=== PATIENT | male | born 1990 ===

== ENCOUNTER 2019-11-01 18:05 | Emergency (ER) | payer SELFPAY ==
[2019-11-01 18:14] VITALS: BP 135/85; PULSE 97; RESP 18; TEMP 36.6; O2SAT 100; BMI 23.7
[2019-11-01 18:49] LABS: Basophils % 0.1 %; Hematocrit 52.6 % (42.0-52.0); Hemoglobin 18.3 g/dL (11.7-16.6); Lymphocytes % 10.6 %; Mean Corpuscular HGB Conc 34.8 g/dL (30.0-36.0); Mean Corpuscular Hemoglobin 28.6 pg (28.0-34.0); Mean Corpuscular Volume 82.3 fL (80-94); Mean Platelet Volume 11.2 fL (7.4-10.4); Monocytes # 1.2 10^3/uL (0.2-0.9); Monocytes % 6.1 %; Neutrophils # 15.6 10^3/uL (1.8-7.7); Neutrophils % 82.8 %; Nucleated Red Blood Cells % 0 %; Platelet Count 393 10^3/cmm (130-400); Red Blood Count 6.39 10^6/uL (4.1-5.3); Red Cell Distribution Width 12.4 % (12.1-15.1); White Blood Count 18.8 10^3/uL (4.0-10.0)
[2019-11-01 19:05] LABS: Alanine Aminotransferase 21 U/L (0-41); Alkaline Phosphatase 104 IU/L (40-130); Anion Gap 29.9 (5-19); Aspartate Amino Transferase 31 U/L (0-40); Blood Urea Nitrogen 47 mg/dL (6-20); Calcium 12.8 mg/dL (8.5-10.5); Carbon Dioxide 22 mmol/L (22-29); Chloride 83 mmol/L (98-107); Glucose 156 mg/dL (65-115); Lipase 18 U/L (13-60); Osmolality Calculated 273 mOsm/kg (285-295); Potassium 3.9 mmol/L (3.5-5.1); Sodium 131 mmol/L (136-145); Total Bilirubin 1.5 mg/dL (0.15-1.2); Total Protein 10.1 g/dL (6.6-8.7)
[2019-11-01 19:19] LABS: Albumin Level 7.8 g/dL (3.5-5.2); Globulin 2.3 g/dL (1.3-4.6)
--- NOTE | 2019-11-01 19:39 | W.ED.GENADLT ---
HPI - General Adult General: Chief complaint: General Medical Stated complaint: n/v bloody urine/vomit Time Seen by Provider: 11/01/19 19:22 Source: patient Mode of arrival: ambulatory Limitations: no limitations History of Present Illness: HPI narrative: Patient comes in today with complaints of nausea and vomiting and being overheated. Patient states that yesterday got really hot and started throwing up late last night. Patient reports that today he just has not felt any better has not really been able to tolerate fluids. Patient appears mildly unwell. Patient appears in no pain. Patient has no chronic medical problems reported. Associated symptoms: Reports nausea and vomiting Review of Systems General: Reports: 10 or more systems reviewed and unremarkable except in HPI and below GI: Reports: nausea and vomiting Physical Exam Const: COMMON NORMALS: no acute distress and patient oriented x3 GENERAL APPEARANCE: cooperative HENMT: COMMON NORMALS: normocephalic and Normal external nose present HEAD & SCALP: normal to inspection and normocephalic NOSE: Normal external nose present MOUTH: Normal oral and palatal mucosa present THROAT: posterior oropharynx normal Eye: GENERAL EYE: appearance normal, both eyes and all related structures Neck/C-Spine: COMMON NORMALS: full ROM Lymph: LYMPHATIC: no lymphadenopathy noted Chest: COMMONS NORMALS: normal inspection of the chest Resp: COMMON NORMALS: normal respiratory effort EFFORT & INSPECTION: Yes able to speak in complete sentences Cardio: COMMON NORMALS: regular rate and regular rhythm RATE: regular rate RHYTHM: regular rhythm GI: COMMON NORMALS: non-tender : COMMON NORMALS: Yes no CVA tenderness BLADDER/KIDNEY EXAM: Yes no CVA tenderness Back/Pelvis: COMMON NORMALS: no CVA tenderness and thoracic and lumbar spine normal to inspection Extremity: COMMON NORMALS: normal to inspection Neuro: COMMON NORMALS: patient oriented x3 and moves all extremities Psych: COMMON NORMALS: mental status grossly normal and cooperative Skin: COMMON NORMALS: no rashes or lesions noted GENERAL SKIN EXAM: no rashes or lesions noted Course ED course: 2238, patient is able to eat and drink without difficulty. Patient has no episode of nausea or vomiting. Awaiting repeat basic metabolic panel and CPK. Vital Signs: Vital signs: Vital Signs Temperature 97.9 F 11/01/19 18:14 Pulse Rate 71 11/01/19 21:24 Respiratory Rate 17 11/01/19 21:24 Blood Pressure 157/94 11/01/19 21:24 Pulse Oximetry 100 11/01/19 21:24 MDM - General Adult MDM Narrative: Medical decision making narrative: Patient comes in today for complaints of nausea and vomiting and heat exhaustion. Patient reports getting overheated yesterday and since then he has been nauseous and throwing up. Patient appears mildly unwell. Patient responds appropriate to questioning. Abdomen was soft nontender and vital signs were normal. Differential diagnosis includes but not limited to alcohol intoxication, heatstroke, heat exhaustion, acute kidney injury, dehydration. Laboratory values noted a creatinine of 4.3. Hemoglobin and hematocrit were 18.3 and 52.6. CPK was 700. Patient was hydrated with 3 L of fluids and wanted to go home. Patient was able to eat a meal and drink fluids holding them down. Reviewed exam with patient with recommendations and offered to admit patient patient did not want to be admitted at this time and wanted to go home for trial but we return if he became sick and threw up again. Reviewed recommendations of staying out of the heat and continue drinking fluids and add some electrolyte solution to to his regimen of fluids. Patient reported understanding and agreed to plan. Lab Data: Labs: Lab Results 11/01/19 11/01/19 11/01/19 Range/Units 18:37 18:37 18:37 WBC 18.8 H (4.0-10.0) 10^3/ uL RBC 6.39 H (4.1-5.3) 10^6/u L Hgb 18.3 H (11.7-16.6) g/dL Hct 52.6 H (42.0-52.0) % MCV 82.3 (80-94) fL MCH 28.6 (28.0-34.0) pg MCHC 34.8 (30.0-36.0) g/dL RDW 12.4 (12.1-15.1) % Plt Count 393 (130-400) 10^3/c mm MPV 11.2 H (7.4-10.4) fL Neut % (Auto) 82.8 % Lymph % (Auto) 10.6 % Kingfisher % (Auto) 6.1 % Eos % (Auto) 0.0 % Baso % (Auto) 0.1 % Neut # (Auto) 15.6 H (1.8-7.7) 10^3/u L Lymph # (Auto) 2.0 (0.8-4.8) 10^3/u L Kingfisher # (Auto) 1.2 H (0.2-0.9) 10^3/u L Eos # (Auto) 0.0 (0.0-0.8) 10^3/u L Baso # (Auto) 0.0 (0.0-0.1) 10^3/u L Nucleated RBC % (a uto) 0 % Nucleated RBCs # 0.0 /100WBC Sodium 131 L (136-145) mmol/L Potassium 3.9 (3.5-5.1) mmol/L Chloride 83 L (98-107) mmol/L Carbon Dioxide 22 (22-29) mmol/L Anion Gap 29.9 H (5-19) BUN 47 H (6-20) mg/dL Creatinine 4.2 H (0.7-1.2) mg/dL GFR Calculation 17.0 L (90-130) mL/min Glucose 156 H (65-115) mg/dL Calculated Osmolal ity 273 L (285-295) mOsm/k g Calcium 12.8 H (8.5-10.5) mg/dL Total Bilirubin 1.5 H (0.15-1.2) mg/dL AST 31 (0-40) U/L ALT 21 (0-41) U/L Alkaline Phosphata se 104 (40-130) IU/L Creatine Kinase 722 H* (39-308) U/L Total Protein 10.1 H (6.6-8.7) g/dL Albumin 7.8 H (3.5-5.2) g/dL Globulin 2.3 (1.3-4.6) g/dL Lipase 18 (13-60) U/L Urine Color (Yellow) Urine Appearance (CLEAR) Urine pH (5-7) Ur Specific Gravit y (1.005-1.030) Urine Protein (Negative) Urine Glucose (UA) (Normal) Urine Ketones (Negative) Urine Blood (Negative) Urine Nitrate (Negative) Urine Bilirubin (NEGATIVE) Prot Sulfosalicyli c Acd (Negative) Urine Urobilinogen (Negative) mg/dL Ur Leukocyte Yuko ase (Negative) Urine RBC (0-2) /hpf Urine WBC (0-5) /hpf Ur Squamous Epith Cells (0-5) Amorphous Sediment Urine Bacteria (NONE) Hyaline Casts Urine Mucus 11/01/19 11/01/19 Range/Units 22:08 22:58 WBC (4.0-10.0) 10^3/ uL RBC (4.1-5.3) 10^6/u L Hgb (11.7-16.6) g/dL Hct (42.0-52.0) % MCV (80-94) fL MCH (28.0-34.0) pg MCHC (30.0-36.0) g/dL RDW (12.1-15.1) % Plt Count (130-400) 10^3/c mm MPV (7.4-10.4) fL Neut % (Auto) % Lymph % (Auto) % Kingfisher % (Auto) % Eos % (Auto) % Baso % (Auto) % Neut # (Auto) (1.8-7.7) 10^3/u L Lymph # (Auto) (0.8-4.8) 10^3/u L Kingfisher # (Auto) (0.2-0.9) 10^3/u L Eos # (Auto) (0.0-0.8) 10^3/u L Baso # (Auto) (0.0-0.1) 10^3/u L Nucleated RBC % (a uto) % Nucleated RBCs # /100WBC Sodium 134 L (136-145) mmol/L Potassium 4.1 (3.5-5.1) mmol/L Chloride 85 L (98-107) mmol/L Carbon Dioxide 18 L (22-29) mmol/L Anion Gap 35.1 H (5-19) BUN 48 H (6-20) mg/dL Creatinine 4.3 H (0.7-1.2) mg/dL GFR Calculation 16.5 L (90-130) mL/min Glucose 145 H (65-115) mg/dL Calculated Osmolal ity 279 L (285-295) mOsm/k g Calcium 13.0 H (8.5-10.5) mg/dL Total Bilirubin (0.15-1.2) mg/dL AST (0-40) U/L ALT (0-41) U/L Alkaline Phosphata se (40-130) IU/L Creatine Kinase (39-308) U/L Total Protein (6.6-8.7) g/dL Albumin (3.5-5.2) g/dL Globulin (1.3-4.6) g/dL Lipase (13-60) U/L Urine Color Yellow (Yellow) Urine Appearance Cloudy (CLEAR) Urine pH 5 (5-7) Ur Specific Gravit y 1.030 (1.005-1.030) Urine Protein 1+ H (Negative) Urine Glucose (UA) Norm (Normal) Urine Ketones 1+ H (Negative) Urine Blood 3+ H (Negative) Urine Nitrate Negative (Negative) Urine Bilirubin 1+ H (NEGATIVE) Prot Sulfosalicyli c Acd Negative (Negative) Urine Urobilinogen 1 H (Negative) mg/dL Ur Leukocyte Yuko ase Negative (Negative) Urine RBC 5-10 H (0-2) /hpf Urine WBC None (0-5) /hpf Ur Squamous Epith Cells 0-4 H (0-5) Amorphous Sediment 1+ Urine Bacteria 2+ H (NONE) Hyaline Casts 40-55 H Urine Mucus 3+ Discharge Plan Discharge Patient Disposition: Home, Self-Care Clinical Impression: Acute kidney injury Heat exhaustion Qualifiers: Encounter type: initial encounter Qualified Code(s): T67.5XXA - Heat exhaustion, unspecified, initial encounter Condition: Stable Prescriptions: No Action Pepto-Bismol 262 mg/15 mL Suspension 524 mg PO Q1H PRN (Reason: STOMACH ISSUES) RF: 0 Discharge Orders: Discharge Order (Routine); Ordered 11/01/19 Ordered By: Cristofer Escobedo Discharge Diet: Usual diet Discharge Activity: Increase activity as tolerated Patient Instructions: Heat Exhaustion (ED) Activity Restrictions/Additional Instructions: Continue pushing plenty of liquids and fluids. Use Gatorade solution 8 ounces 3 times a day along with water. Avoid alcohol consumption for the next 2 to 3 days. Avoid extreme heat. Follow-up with primary care in 1 week for recheck of labs. Return to the ER for vomiting, or new concerns. Interventions: ED Charges Last Done: 11/01/19 23:07 Coding Level of Care Code ED Mercerizer Machine Operator for Sj Fwd Exam Comprehensive
[2019-11-01] MEDS: lactated ringers 1,000 ML 999 ML IV ×2 (19:57→21:22)
[2019-11-01 21:24] VITALS: BP 157/94; PULSE 71; RESP 17; O2SAT 100
[2019-11-01 22:38] LABS: Bilirubin Urine 1+ (NEGATIVE); Blood Urine 3+ (Negative); Glucose Urine UA Norm (Normal); Ketones Urine 1+ (Negative); Nitrate Urine Negative (Negative); Protein Urine 1+ (Negative); Sulfosalicylic Acid Urine Negative (Negative); Urine Appearance Cloudy (CLEAR); Urine Color Yellow (Yellow); Urobilinogen Urine 1 mg/dL (Negative); pH Urine 5 (5-7)
[2019-11-01 22:39] LABS: Add Urine Microscopic? YES; Leukocyte Esterase Urine Negative (Negative)
[2019-11-01 22:40] LABS: Hyaline Casts Urine 40-55
[2019-11-01 22:41] LABS: Squamous Epithelial Cell Urine 0-4 (0-5)
[2019-11-01 22:42] LABS: Add Urine Culture? Yes; Amorphous Sediment Urine 1+; Bacteria Urine 2+; Mucus Urine 3+
[2019-11-01] MEDS: sodium chloride 0.9% 1,000 ML 999 ML IV (23:01)
[2019-11-01 23:03] LABS: Anion Gap 35.1 (5-19); Blood Urea Nitrogen 48 mg/dL (6-20); Carbon Dioxide 18 mmol/L (22-29); Chloride 85 mmol/L (98-107); Glomerular Filtration Rate 16.5 mL/min (90-130); Glucose 145 mg/dL (65-115); Osmolality Calculated 279 mOsm/kg (285-295); Potassium 4.1 mmol/L (3.5-5.1); Sodium 134 mmol/L (136-145)
[2019-11-01 23:17] LABS: Creatine Phosphokinase 722 U/L (39-308)
[2019-11-01 23:50] VITALS: BP 142/80; PULSE 71; RESP 16; TEMP 36.9; O2SAT 100
== END 2019-11-01 23:51 | disposition home or self-care (01) ==
PROVIDERS: Emergency Medicine; Emergency Provider Nurse Practitioner Family
DX: N17.9 Acute kidney failure, unspecified (principal); T67.5XXA Heat exhaustion, unspecified, initial encounter; X30.XXXA Exposure to excessive natural heat, initial encounter
CPT/HCPCS: 12345; 36415; 80048; 80053; 81001; 81003; 82550; 83690; 85025; 96365; 96366; 99283; J7030

== ENCOUNTER → 2023-08-02 09:32 | Outpatient (BNVA) | payer OTHER, SELFPAY | PROVIDERS: PCP Nurse Practitioner Family; Visit Provider Nurse Practitioner Family | DX: K62.5 Hemorrhage of anus and rectum (principal) | CPT/HCPCS: 82270 ==

== ENCOUNTER 2023-08-24 08:09 | Day surgery (SDC) | payer OTHER, SELFPAY ==
[2023-08-24 08:21] VITALS: BP 140/82; PULSE 57; RESP 18; TEMP 36.4; O2SAT 99
--- NOTE | 2023-08-24 08:28 | P.ANESASSM_ITS ---
Pre-Anesthetic Assessment Height/Weight: Height 1.85 m Weight 88.451 kg Temp Pulse Resp BP Pulse Ox O2 Del Method 97.6 F 57 L 18 140/82 99 Room Air 08/24/23 08:21 08/24/23 08:21 08/24/23 08:21 08/24/23 08:21 08/24/23 08:21 08/24/23 08:21 Operation Date: 08/24/23 09:15 Proposed Procedures p EGD(Not Applicable) - Ede Kaur DO s Colonoscopy(Not Applicable) - Ede Kaur DO Familial anesthetic complications: None Was Beta Ericka taken within 24 hours: N/A Was Clonidine taken within 24 hours: N/A Last intake: Intake Last Liquid Date 08/23/23 Last Liquid Time 20:00 Last Solid Date 08/22/23 Last Solid Time 18:00 Social No alcohol and No tobacco Exam alert, oriented x 3, clear to auscultation bilaterally and regular rate & rhythm Airway Submandibular: within normal limits Cervical ROM: within normal limits Mallampati: Class II Dentition: full Comments: Comments: Bottom left broken tooth History/ROS No significant history except as noted and No significant complaints Pulmonary None reported CV/HEM None reported None reported Hepatic None reported GI Constipation Metabolic None reported Musc/skel None reported Neuropsych 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, d/t drug use) Anesthetic Plan ASA status: 2 Anesthesia: Anesthesia Evaluation, General and MAC Risk of > 500 ml blood loss (7ml/kg in children): No Medications/Allergies Home Medications Medication Instructions Recorded Confirmed Last Taken Type No Known Home Medications 08/01/23 08/22/23 Unknown History Allergies Allergy/AdvReac Type Severity Reaction Status Date / Time No Known Allergies Allergy Verified 07/26/23 12:58 [facility] Anesthesia Surgical History History of umbilical hernia repair Family History Other Diabetes Social History Smoking and tobacco/nicotine status: former use of tobacco/nicotine Second hand smoke exposure: No Alcohol intake: never Adopted: No Caregiver/support person: Yes Lives independently: No Marital status: Single service: Yes Special sivan needs: No Data Anesthesia Cardiac Studies: No Data to Display
[2023-08-24] MEDS: sodium chloride 0.9% 1,000 ML 30 ML IV (08:31)
--- NOTE | 2023-08-24 09:30 | W.PM.OPSUD ---
Surgery/Procedure H&P Update DATE OF PROCEDURE: August 24, 2023 DATE H&P PERFORMED: 08/01/23 H&P UPDATE INFORMATION: I have reviewed H&P completed within last 30 days, I have examined patient prior to procedure and No changes to prior documentation PLANNED PROCEDURE: Operation Date: 08/24/23 09:15 Proposed Procedures p EGD(Not Applicable) - DO froilan [facility] Colonoscopy(Not Applicable) - Ede Kaur DO
[2023-08-24 10:02] VITALS: BP 104/51; PULSE 69; RESP 20; TEMP 36.6; O2SAT 98
[2023-08-24 10:13] VITALS: BP 150/75; PULSE 80; RESP 20; O2SAT 99
[2023-08-24 10:20] VITALS: BP 141/86; PULSE 72; RESP 20; O2SAT 100
--- NOTE | 2023-08-24 10:40 | ANE.PACU2 ---
Inpatient post-anesthesia follow up: Airway intact: Yes Vital signs: Temperature 97.8 F Pulse Rate 72 Respiratory Rate 20 Blood Pressure 141/86 Pulse Oximetry 100 Oxygen Delivery Me thod Room Air Oxygen Flow Rate 4 Fraction of Inspir ed Oxygen Hydration adequate: Yes Nausea and vomiting: No Pain level: 1 Mental status: Baseline
== END 2023-08-24 10:43 | disposition home or self-care (01) ==
PROVIDERS: PCP Nurse Practitioner Family; Visit Provider Surgery
PROC: 0DJ08ZZ Inspection of Upper Intestinal Tract, Via Natural or Artificial Opening Endoscopic (ICD-10-PCS; CPT 43235; principal; 2023-08-24 09:15)
PROC: 0DJD8ZZ Inspection of Lower Intestinal Tract, Via Natural or Artificial Opening Endoscopic (ICD-10-PCS; CPT 45378; 2023-08-24 09:15)
DX: K59.09 Other constipation (principal); D12.8 Benign neoplasm of rectum; K29.30 Chronic superficial gastritis without bleeding; Z87.891 Personal history of nicotine dependence; K59.00 Constipation, unspecified; K92.1 Melena
CPT/HCPCS: 43239; 45385; 88305; 88342; J2704; J7030

== ENCOUNTER 2024-04-03 13:49 | Outpatient (CLI) | payer OTHER, SELFPAY ==
--- NOTE | 2024-04-03 13:54 | XR_ITS ---
WS: [id number] HISTORY: Previous mandibular fracture. Exposed mandibular bone in the oral cavity. EXAMINATION: Mandible series 04/03/2024. FINDINGS: Mandibular condyles and temporomandibular joints appear normal. The body of the mandible demonstrates no focal bony abnormality. Abnormal dentition is noted. XR/XR mandible <4V [id number] IMPRESSION: No significant mandibular abnormality.
== END 2024-04-03 13:50 | disposition home or self-care (01) ==
LOC: RAD 13:50
PROVIDERS: PCP Nurse Practitioner Family; Visit Provider Nurse Practitioner Family
DX: R68.84 Jaw pain (principal); G89.29 Other chronic pain
CPT/HCPCS: 70100